=== PATIENT | male | born 1975 | race Two or more races ===

== ENCOUNTER 2022-02-03 10:50 | Inpatient (IN) | payer OTHER ==
[~2022-02-03] VITALS: Ht 167.6 cm; Wt 85.5 kg
[2022-02-03 12:52] LABS: Basophils # (auto) 0.1 10 ^3/uL (0-0.2); Basophils % (auto) 0.2 % (0.0-2.0); Eosinophils # (auto) 0 10 ^3/uL (0-0.8); Eosinophils % (auto) 0.1 % (0.0-7.0); Hematocrit 52.2 % (41.0-53.0); Hemoglobin 17.5 g/dL (13.5-17.5); Lymphocytes # (auto) 0.7 10 ^3/uL (0.4-5.4); Lymphocytes % (auto) 3.2 % (10.0-50.0); Mean Corpuscular Hemoglobin 30.1 pg (28.0-32.0); Mean Corpuscular Hgb Conc. 33.6 g/dL (32.0-36.0); Mean Corpuscular Volume 89.6 fL (80.0-100.0); Monocytes # (auto) 1.7 10 ^3/uL (0-1.3); Monocytes % (auto) 7.8 % (0.0-12.0); Neutrophils # (auto) 19.9 10 ^3/uL (1.6-8.6); Neutrophils % (auto) 88.7 % (37.0-80.0); Nucleated Red Blood Cells % 0.1 %; Red Blood Cells 5.82 10^6/uL (4.5-5.90); Red Cell Distribution Width 13.7 % (11.8-14.3); White Blood Cell 22.4 10^3/uL (4.4-10.8)
[2022-02-03 13:12] LABS: Albumin 4.9 g/dL (3.4-5.0); Calcium 8.7 mg/dL (8.5-10.1); Magnesium 2.5 mg/dL (1.6-2.6)
[2022-02-03 13:15] LABS: BUN/Creatinine Ratio 13.3; Bilirubin, Total 0.4 mg/dL (0.2-1.0); Total Protein 8.9 g/dL (6.4-8.2)
[2022-02-03 13:26] LABS: Potassium 5.8 mmol/L (3.5-5.1)
[2022-02-03] MEDS ORDERED: ALUM & MAG HYDROX-SIMETH LIQ(MAALOX) 30 ML PO ONE (15:00)
[2022-02-03] MEDS ORDERED: SODIUM CHLORIDE 0.9% 1,000 ML IV ONE (15:45)
[2022-02-03] MEDS ORDERED: SODIUM ZIRCONIUM CYCL 10 GM PAK PO ONE (16:00)
[2022-02-03] MEDS ORDERED: ASPirin 325 MG TAB PO ONE (16:00)
[2022-02-03] MEDS: HYDROcodone-ACET 10/325MG TAB PO PRN ×2 (16:56→22:25)
[2022-02-03] MEDS: ENOXAPARIN SOD 40 MG/0.4 ML SYRINGE SC SCH (18:38)
[2022-02-03 19:14] LABS: Urine Bacteria NONE SEEN /hpf (None Seen); Urine Blood Negative /uL (Negative); Urine Specific Gravity 1.012 (1.001-1.035); Urine WBC <1 /hpf (0 - 3)
[2022-02-03 21:33] VITALS: BP 162/91
[2022-02-03] MEDS ORDERED: AMIO200T33 PO (21:53)
[2022-02-03] MEDS ORDERED: LISI40TA11 PO (21:54)
[2022-02-03] MEDS ORDERED: RAMI10CA38 PO (21:56)
[2022-02-03] MEDS ORDERED: AMLO-496 PO (21:57)
[2022-02-03] MEDS ORDERED: OXCA600T3 PO (21:58)
[2022-02-03] MEDS ORDERED: ATOR40TA52 PO (22:03)
[2022-02-03] MEDS: PIPERACILLIN-TAZOB 3.375GM 100 ML IV SCH (22:37)
[2022-02-04] MEDS: HYDROcodone-ACET 10/325MG TAB PO PRN ×6 (02:38→22:32)
[2022-02-04 05:00] VITALS: BP 157/100
[2022-02-04] MEDS: PIPERACILLIN-TAZOB 3.375GM 100 ML IV SCH ×3 (06:25→22:37)
[2022-02-04 06:27] LABS: Basophils # (auto) 0.1 10 ^3/uL (0-0.2); Basophils % (auto) 0.5 % (0.0-2.0); Eosinophils # (auto) 0.1 10 ^3/uL (0-0.8); Eosinophils % (auto) 0.6 % (0.0-7.0); Hematocrit 44.4 % (41.0-53.0); Hemoglobin 14.7 g/dL (13.5-17.5); Lymphocytes # (auto) 1.4 10 ^3/uL (0.4-5.4); Lymphocytes % (auto) 9.2 % (10.0-50.0); Mean Corpuscular Hemoglobin 30.3 pg (28.0-32.0); Mean Corpuscular Hgb Conc. 33.2 g/dL (32.0-36.0); Mean Corpuscular Volume 91.2 fL (80.0-100.0); Monocytes # (auto) 1.9 10 ^3/uL (0-1.3); Monocytes % (auto) 12.4 % (0.0-12.0); Neutrophils # (auto) 11.6 10 ^3/uL (1.6-8.6); Neutrophils % (auto) 77.3 % (37.0-80.0); Red Blood Cells 4.86 10^6/uL (4.5-5.90); Red Cell Distribution Width 13.5 % (11.8-14.3)
[2022-02-04 06:37] LABS: Calcium 8.1 mg/dL (8.5-10.1); Potassium 3.9 mmol/L (3.5-5.1)
[2022-02-04 06:39] LABS: BUN/Creatinine Ratio 15.4
[2022-02-04 08:05] VITALS: BP 124/69
[2022-02-04] MEDS: PANTOPRAZOLE 40 MG TAB PO SCH (10:25)
[2022-02-04] MEDS: ASPirin 81 mg TAB PO SCH (10:25)
[2022-02-04] MEDS: ENOXAPARIN SOD 40 MG/0.4 ML SYRINGE SC SCH (10:26)
[2022-02-04] MEDS: LISINOPRIL 20 MG TAB PO SCH (10:27)
[2022-02-04] MEDS: AMIODARONE HCL 200 MG TAB PO SCH (10:32)
[2022-02-04 12:15] VITALS: BP 137/88
[2022-02-04 16:15] VITALS: BP 126/70
[2022-02-04 22:00] VITALS: BP 136/67
[2022-02-05 01:35] LABS: Basophils # (auto) 0.1 10 ^3/uL (0-0.2); Basophils % (auto) 0.8 % (0.0-2.0); Eosinophils # (auto) 0.2 10 ^3/uL (0-0.8); Eosinophils % (auto) 2.1 % (0.0-7.0); Lymphocytes # (auto) 1.3 10 ^3/uL (0.4-5.4); Lymphocytes % (auto) 11.7 % (10.0-50.0); Mean Corpuscular Hemoglobin 30.6 pg (28.0-32.0); Mean Corpuscular Hgb Conc. 33.2 g/dL (32.0-36.0); Mean Corpuscular Volume 92.1 fL (80.0-100.0); Monocytes # (auto) 1.1 10 ^3/uL (0-1.3); Monocytes % (auto) 10.1 % (0.0-12.0); Neutrophils # (auto) 8.4 10 ^3/uL (1.6-8.6); Neutrophils % (auto) 75.3 % (37.0-80.0); Nucleated Red Blood Cells % 0.1 %; Red Blood Cells 4.56 10^6/uL (4.5-5.90); Red Cell Distribution Width 13.5 % (11.8-14.3); White Blood Cell 11.2 10^3/uL (4.4-10.8)
[2022-02-05 01:52] LABS: BUN/Creatinine Ratio 16.2; Calcium 8.3 mg/dL (8.5-10.1); Potassium 4.1 mmol/L (3.5-5.1)
[2022-02-05] MEDS: HYDROcodone-ACET 10/325MG TAB PO PRN ×3 (02:39→11:20)
[2022-02-05 05:00] VITALS: BP 109/46
[2022-02-05] MEDS: PIPERACILLIN-TAZOB 3.375GM 100 ML IV SCH (06:34)
[2022-02-05 07:30] VITALS: BP 124/69
[2022-02-05 09:00] VITALS: BP 120/73
[2022-02-05] MEDS ORDERED: LEVO750T8 PO (09:58)
[2022-02-05] MEDS ORDERED: METOPROLOL TARTRATE 25 MG TAB PO SCH (10:00)
[2022-02-05] MEDS: LISINOPRIL 20 MG TAB PO SCH (11:20)
[2022-02-05] MEDS: PANTOPRAZOLE 40 MG TAB PO SCH (11:22)
[2022-02-05] MEDS: ENOXAPARIN SOD 40 MG/0.4 ML SYRINGE SC SCH (11:22)
[2022-02-05] MEDS: AMIODARONE HCL 200 MG TAB PO SCH (11:22)
[2022-02-05] MEDS: ASPirin 81 mg TAB PO SCH (11:23)
[2022-02-05 12:35] VITALS: BP 132/80
[2022-02-05 13:12] VITALS: BP 132/80
[2022-02-05] MEDS ORDERED: ATORVASTATIN 20 MG TAB PO SCH (22:00)
== END 2022-02-05 15:00 | disposition home or self-care (01) | DRG 280 ==
LOC: EEVIPCON 10:50 → ER 10:50 → EDBD 10:50 → TELE 16:26 → TELE-WESTW 21:20
PROVIDERS: ADMIT Internal Medicine; ATTEND Internal Medicine
DX: I21.9 Acute myocardial infarction, unspecified (principal); J18.9 Pneumonia, unspecified organism; N17.9 Acute kidney failure, unspecified; D72.829 Elevated white blood cell count, unspecified; Z20.822 Contact with and (suspected) exposure to COVID-19; I25.10 Atherosclerotic heart disease of native coronary artery without angina pectoris; I10 Essential (primary) hypertension; Z79.899 Other long term (current) drug therapy; Z82.49 Family history of ischemic heart disease and other diseases of the circulatory system; Z86.73 Personal history of transient ischemic attack (TIA), and cerebral infarction without residual deficits; Z90.49 Acquired absence of other specified parts of digestive tract
CPT/HCPCS: 36415; 71045; 71046; 76705; 80048; 80053; 81001; 82140; 83690; 83735; 83880; 84132; 84443; 84484; 85025; 87040; 87086; 93005; 96360; 96372; G0378; J2543